=== PATIENT | female | born 1965 | race Caucasian/White ===

== ENCOUNTER 2023-07-08 08:37 | Emergency (ER) | payer MEDICAID ==
[~2023-07-08] VITALS: Ht 157.5 cm; Wt 70.3 kg
[2023-07-08 08:43] VITALS: BP 123/67; PULSE 79; RESP 17; TEMP 97.9; O2SAT 98
[2023-07-08] MEDS ORDERED: KETOROLAC 60 MG/2 ML VIAL IM ONE (09:55)
[2023-07-08] MEDS ORDERED: IBUP-2213 PO (10:06)
== END 2023-07-08 10:20 | disposition home or self-care (01) ==
LOC: MED 08:37
DX: S51.052A Open bite, left elbow, initial encounter (principal); Z88.5 Allergy status to narcotic agent; Z88.6 Allergy status to analgesic agent; Z98.890 Other specified postprocedural states; W54.0XXA Bitten by dog, initial encounter; Y93.89 Activity, other specified; Y92.89 Other specified places as the place of occurrence of the external cause; Y99.8 Other external cause status
CPT/HCPCS: 90471; 90715; 96372; 99284; J1885